=== PATIENT | male | born 1995 | race African-American/Black ===

== ENCOUNTER 2018-12-02 01:45 | Emergency (ER) | payer MEDICAID ==
[~2018-12-02] VITALS: Ht 180.3 cm; Wt 91.0 kg
[2018-12-02] MEDS ORDERED: KETOROLAC 60MG/2ML VIAL IM ONE (07:45)
[2018-12-02 07:50] VITALS: BP 115/64
== END 2018-12-02 08:17 | disposition home or self-care (01) ==
LOC: ER 01:45
DX: S16.1XXA Strain of muscle, fascia and tendon at neck level, initial encounter (principal); F12.10 Cannabis abuse, uncomplicated; V43.52XA Car driver injured in collision with other type car in traffic accident, initial encounter; Y93.89 Activity, other specified; Y92.488 Other paved roadways as the place of occurrence of the external cause
CPT/HCPCS: 96372; 99283; J1885

== ENCOUNTER 2022-07-19 21:31 | Emergency (ER) | payer MEDICAID ==
[~2022-07-19] VITALS: Ht 180.3 cm; Wt 95.0 kg
[2022-07-20] MEDS ORDERED: IBUPROFEN 400MG TABLET PO ONE
[2022-07-20] MEDS ORDERED: FLUORESCEIN SODIUM 1MG/STRIP RIGHTEYE ONE
[2022-07-20] MEDS ORDERED: TETRACAINE 0.5% OPHTH DROPS 4ML RIGHTEYE ONE
[2022-07-20 00:08] VITALS: BP 137/98
[2022-07-20] MEDS ORDERED: SULF15DR26 RIGHTEYE (00:23)
[2022-07-20] MEDS ORDERED: IBUP-2028 MT (00:23)
== END 2022-07-20 00:36 | disposition home or self-care (01) ==
LOC: ER 21:31
DX: H10.021 Other mucopurulent conjunctivitis, right eye (principal)
CPT/HCPCS: 99284